=== PATIENT | female | born 1980 | race Hispanic/Latino ===

== ENCOUNTER 2018-01-23 21:29 | Emergency (ER) | payer MEDICAID, OTHER ==
[2018-01-23] MEDS ORDERED: Ketorolac Tromethamine 60 MG/2 ML VIAL ONE (22:29)
--- NOTE | 2018-01-23 23:00 | RAD ---
LEFT SHOULDER THREE VIEWS: 01/23/18 HISTORY: Fall, left shoulder pain. FINDINGS/IMPRESSION: No acute fracture or dislocation is identified. POS: SHARON
== END 2018-01-23 23:58 | disposition home or self-care (01) ==
LOC: ERS 21:29
DX: S43.432A Superior glenoid labrum lesion of left shoulder, initial encounter (principal); F17.210 Nicotine dependence, cigarettes, uncomplicated; Z71.6 Tobacco abuse counseling; Z79.899 Other long term (current) drug therapy; W18.30XA Fall on same level, unspecified, initial encounter
CPT/HCPCS: 96372; 99406; J1885

== ENCOUNTER 2019-02-17 21:29 | Day surgery (SDC) | payer OTHER ==
[2019-02-17 22:02] VITALS: BMI 40.1
[2019-02-17] MEDS ORDERED: Promethazine HCl 25 MG/ML VIAL IM SCH (23:15)
[2019-02-17] MEDS ORDERED: Morphine 4 MG/ML VIAL IM SCH (23:15)
--- NOTE | 2019-02-18 00:33 | PRG ---
DATE OF SERVICE: 02/17/2019 PRIMARY OB: Out of town. CHIEF COMPLAINT: Abdominal pain. HISTORY OF PRESENT ILLNESS: The patient is a 38-year-old, G7, P1 female with an intrauterine at 36 weeks and 4 days, who is presenting to Labor and Delivery today with complaints of two weeks of sharp abdominal and back pain and having lost her mucus plug yesterday. The patient reports that these pains have been stabby sharp pain, worse with activity and movement. She denies any contraction pains that come and go. She does report that her mucus plug seemed to have come out yesterday and has had some spotting more than usual since she was seen on Thursday by her primary OB. At that time, the patient had a cervical exam and was noted to be 1.5 cm dilated. The patient reports a history of a 36-week delivery. She is in town for a couple days, although her is working and is planning on returning in the next day or so back to the [facility]. The patient denies any recent illness, fever, fall, headache, chest pain, shortness of breath, nausea, vomiting, diarrhea, or constipation. She denies any hip problems, knee problems, or muscle weakness. She denies any significant change in her discharge other than what is stated in the HPI. She denies any urinary urgency or frequency. PAST MEDICAL HISTORY: Significant for asthma and anemia. PAST SURGICAL HISTORY: She has had a laparoscopy for a ruptured cyst. ALLERGIES: NO KNOWN DRUG ALLERGIES. MEDICATIONS: She is on vitamins, albuterol p.r.n., inhaled steroid, and iron. SOCIAL HISTORY: Denies drug, alcohol, or tobacco use. OB LABS: Unavailable at time of dictation. REVIEW OF SYSTEMS: Per HPI. PHYSICAL EXAMINATION: VITAL SIGNS: Blood pressure is 120/70, heart rate of 92, and temperature 97.6. GENERAL: She appears to be in no acute distress. She is alert, oriented, cooperative, and pleasant to interact with. HEENT: Head is normocephalic and atraumatic. LUNGS: Clear to auscultation bilaterally. HEART: Has regular rate and rhythm. ABDOMEN: Gravid. She does have significant tenderness with deviation of the uterus to the left and right, reproducing her chief complaint pains. She also has significant SI joint tenderness to palpation. EXTREMITIES: Nontender and nonedematous. : Per nursing staff is unchanged from her OB visit two days ago with cervical exam of 1.5 cm thick and high. heart tracing performed for abdominal pain and , baseline is noted to be in the 140s with moderate long-term variability, positive 15 x 15 accelerations, no decelerations. The patient on tocometer showing some irritability, but no consistent contraction pattern. ASSESSMENT AND PLAN: The patient is a 38-year-old female with an intrauterine at 36 weeks experiencing musculoskeletal pains of . Fetus is reactive and reassuring on heart tracing. The patient has been offered morphine and Phenergan for temporary pain control, which she is accepting. She has been notified that she cannot drive herself home and reports her is coming to get her. The patient will be leaving the area in the next year to return to her primary residence and to her OB provider. There is no evidence of labor today at this time. The patient has been given labor precautions. Job ID: [id number]
== END 2019-02-18 00:10 | disposition home or self-care (01) ==
LOC: L&D/OP 21:29
PROVIDERS: ATTEND Obstetrics & Gynecology
DX: O99.89 Other specified diseases and conditions complicating pregnancy, childbirth and the puerperium (principal); R10.9 Unspecified abdominal pain; M54.9 Dorsalgia, unspecified; O99.019 Anemia complicating pregnancy, unspecified trimester; D64.9 Anemia, unspecified; J45.909 Unspecified asthma, uncomplicated; Z3A.36 36 weeks gestation of pregnancy; Z79.51 Long term (current) use of inhaled steroids
CPT/HCPCS: 99282; J2270; J2550

== ENCOUNTER 2019-07-24 14:48 | Inpatient (IN) | payer OTHER, SELFPAY ==
[~2019-07-24 14:48] MED LIST: ISOVUE-370 76%-LOCM 1 ML ONE
[2019-07-24 15:19] LABS: #Basophils 0.1 thou/uL (0.0-0.2); #Eosinphils 0.5 thou/uL (0.0-0.7); #Lymphocytes 2.2 thou/uL (1.20-3.40); #Monocytes 0.5 thou/uL (0.11-0.59); #Neutrophils 3.4 thou/uL (1.40-6.50); %Basophils 1.5 % (0.0-1.0); %Lymphocytes 33.4 % (21.0-51.0); %Monocytes 6.7 % (0.0-10.0); %Neutrophils 50.5 % (42.0-75.0); Hemoglobin 13.1 g/dL (12.0-16.0); Mean Corpuscular HGB CONC 35.2 g/dL (32.0-36.0); Mean Corpuscular Hemoglobin 31.8 pg (27.0-31.0); Mean Corpuscular Volume 90.4 fL (78.0-98.0); Platelet Count 259 thou/uL (130-400); RBC Distribution Width 11.5 % (11.5-14.5); Red Blood Cell (RBC) Count 4.13 mill/uL (4.20-5.40); White Blood Cell (WBC) Count 6.7 thou/uL (4.8-10.8)
[2019-07-24 15:39] LABS: ALT (SGPT) 107 U/L (8-55); AST (SGOT) 77 U/L (5-34); Albumin 4.6 g/dL (3.5-5.0); Alkaline Phosphatase 123 U/L (40-110); Anion Gap 13 mmol/L (10-20); BUN (Urea Nitrogen) 10 mg/dL (7.0-18.7); Bilirubin, Total 0.5 mg/dL (0.2-1.2); Calc. Creatinine Clearance 0 mL/min (70-130); Calcium 9.6 mg/dL (7.8-10.44); Carbon Dioxide 28 mmol/L (22-29); Chloride 103 mmol/L (98-107); Estimated GFR-MDRD Greater than 90; Globulin 3.3 g/dL (2.4-3.5); Glucose 108 mg/dL (70-105); Protein, Total 7.9 g/dL (6.0-8.3); Sodium 140 mmol/L (136-145)
[2019-07-24] MEDS ORDERED: Ondansetron PF 4 MG/2 ML Vial ONE (16:10)
[2019-07-24] MEDS ORDERED: Morphine 4 MG/ML VIAL ONE (16:10)
[2019-07-24 16:22] LABS: Pregnancy Test - Urine (BHCG) Negative (Negative); Pregu Control Background? CLEAR/WHITE (CLR/WHITE); Pregu Control Bar Appear? YES (CONTROL BAR); Specific Gravity 1.016 (1.002-1.036)
--- NOTE | 2019-07-24 17:21 | CT ---
EXAM: CT ABDOMEN AND PELVIS HISTORY: Upper abdominal pain since delivery of child 4 months ago COMPARISON: None. Procedure: Multiple contiguous axial images were obtained and a CT of the abdomen and pelvis with IV contrast. C oronal reformats were performed. FINDINGS: Lower Chest: within normal limits. Vessels: Normal caliber aorta Heart: Normal heart size Abdomen: Portal vein:Patent Gallbladder: No calcified gallstones. Normal caliber wall. Liver: Hypoattenuation due to hepatic steatosis. No hepatic masses. Pancreas: within normal limits. Spleen: within normal limits. Adrenals: within normal limits. Kidneys: Symmetric enhancement. No obstructive uropathy. Peritoneum: No ascites or free air, no fluid collection. Bowel: Limited evaluation due to the lack of oral contrast administration. No evidence of bowel obstr uction. Ileocecal junction is unremarkable. Normal caliber appendix. Scattered fecal material in a nondistended, nondilated colon. Diverticulum in the third portion the duodenum measuring 3.2 x 3.0 cm . No acute inflammation. Mesentery and Retroperitoneum: No enlarged mesenteric or retroperitoneal lymph nodes. Abdominal Wall: Small anterior abdominal wall hernia containing mesenteric fat. There is fluid surrou nding the small herniated abdominal mesentery. Component of mesenteric fat measuring 1.9 x 1.0 cm. There is a small enhancing vessel that does extend through the defect. Consider general surgical cons ultation. Pelvis: Reproductive Organs: Reproductive organs are unremarkable. Pelvis: No mass, lymphadenopathy, free air or free fluid. Bladder: within normal limits. Bones: within normal limits. IMPRESSION: 1. No evidence of acute intraabdominal\pelvic abnormality. 2. Small ventral abdominal wall hernia containing a small focus of mesenteric fat. There is a mild am ount of fluid adjacent to the herniated fat, along with enhancing vessel in the herniated mesenteric fat. General surgical consultation is recommended.
[2019-07-24] MEDS ORDERED: hydrALAZINE 20 MG/ML VIAL SLOW IVP PRN (18:19)
[2019-07-24] MEDS ORDERED: Morphine 2 MG/ML SYRINGE SLOW IVP PRN (18:19)
[2019-07-24] MEDS ORDERED: Morphine 4 MG/ML VIAL SLOW IVP PRN (18:19)
[2019-07-24] MEDS ORDERED: Acetaminophen 1,000 MG in Premix Bag 1 BAG IVPB PRN (18:21)
[2019-07-24] MEDS ORDERED: Ketorolac Tromethamine 30 MG/ML VIAL IVP PRN (18:21)
[2019-07-24] MEDS ORDERED: Acetaminophen 1,000 MG in Premix Bag 1 BAG IVPB SCH ×2 (18:30→20:15)
[2019-07-24] MEDS ORDERED: CEFAZOLIN 2 GM in Premix Bag 1 BAG IVPB SCH (18:30)
[2019-07-24] MEDS ORDERED: D5 1/2 NS w/20 mEq KCL 1,000 ML IV SCH (18:30)
[2019-07-24] MEDS ORDERED: Ketorolac Tromethamine 30 MG/ML VIAL IVP SCH ×2 (18:30→20:30)
[2019-07-24 19:18] LABS: Lactic Acid 1.1 mmol/L (0.5-2.2)
[2019-07-24] MEDS ORDERED: Enoxaparin Sodium 40 MG/0.4 ML SYRINGE SC SCH ×2 (21:00)
[2019-07-24] MEDS ORDERED: Famotidine/PF 20 mg/2ml Vial SLOW IVP SCH ×2 (21:00)
[2019-07-24] MEDS: D5 1/2 NS w/20 mEq KCL 1,000 ML IV SCH (21:48)
[2019-07-24 22:30] VITALS: BMI 38.7
--- NOTE | 2019-07-25 01:31 | HP ---
HISTORY OF PRESENT ILLNESS: Helena Todd is a 38-year-old female, 2, para 2, 4 months , has developed a ventral hernia between her umbilicus and xiphoid. This caused her great amount of pain, and she presents to the emergency room, where her CAT scan confirms omental involvement incarcerated in the hernia. She is obese. Plan is to admit her tonight and repair her hernia tomorrow. She understands the risks and benefits, and consents. She consents to use of mesh if indicated. ALLERGIES: NONE. SOCIAL HISTORY: Tobacco, none. Alcohol, none. MEDICATIONS: Iron and vitamins. PAST SURGICAL HISTORY: Left ovarian cyst decompression; carpal tunnel release, right; tonsillectomy; and bilateral tubal ligation. PAST MEDICAL HISTORY: Noncontributory. PHYSICAL EXAMINATION: VITAL SIGNS: Blood pressure 120/70, respiratory rate 18, and heart rate 80. HEAD, EARS, EYES, NOSE, AND THROAT: Unremarkable. LUNGS: Clear to auscultation. CARDIAC: Regular rate and rhythm without murmur or gallop. ABDOMEN: Soft, nontender, obese except for tenderness in her midline, where she has incarcerated hernia between umbilicus and xiphoid. ASSESSMENT: Ventral hernia incarceration. PLAN: Repair tomorrow. We will admit her tonight for pain control and plan to repair this tomorrow. She understands risks and benefits and consents. Job ID: [id number]
[2019-07-25] MEDS: D5 1/2 NS w/20 mEq KCL 1,000 ML IV SCH ×3 (05:43→18:33)
[2019-07-25] MEDS ORDERED: Ketorolac Tromethamine 30 MG/ML VIAL IVP PRN (05:46)
[2019-07-25] MEDS ORDERED: Morphine 2 MG/ML SYRINGE SLOW IVP PRN (05:46)
[2019-07-25] MEDS ORDERED: Acetaminophen 1,000 MG in Premix Bag 1 BAG IVPB PRN (05:46)
[2019-07-25] MEDS ORDERED: hydrALAZINE 20 MG/ML VIAL SLOW IVP PRN (05:46)
[2019-07-25] MEDS ORDERED: Morphine 4 MG/ML VIAL SLOW IVP PRN (05:47)
[2019-07-25] MEDS ORDERED: CEFAZOLIN 2 GM in Premix Bag 1 BAG IVPB SCH (06:00)
[2019-07-25] MEDS ORDERED: FLU VACC QS2019-20(6MOS UP)/PF 60 MCG/0.5 ML SYRINGE IM ONE (09:00)
[2019-07-25] MEDS ORDERED: Famotidine/PF 20 mg/2ml Vial SLOW IVP SCH (09:00)
[2019-07-25] MEDS ORDERED: Lidocaine 2% PF 5 ML VIAL ONE (12:23)
[2019-07-25] MEDS ORDERED: Bupivacaine HCl 0.5%/Epinephrine 1:200,000/PF 30 ml Vial ONE (12:23)
[2019-07-25] MEDS ORDERED: Fentanyl 100 MCG/2 ML VIAL ONE ×3 (12:33→13:43)
[2019-07-25] MEDS ORDERED: Famotidine/PF 20 mg/2ml Vial ONE (12:33)
[2019-07-25] MEDS ORDERED: Meperidine HCl/PF 25 MG/ML VIAL SLOW IVP PRN (13:00)
[2019-07-25] MEDS ORDERED: HYDROmorphone 2 MG/ML VIAL SLOW IVP PRN (13:00)
[2019-07-25] MEDS ORDERED: Promethazine HCl 25 MG/ML VIAL SLOW IVP PRN (13:00)
[2019-07-25] MEDS ORDERED: Promethazine HCl 25 MG/ML VIAL IM PRN (13:00)
[2019-07-25] MEDS ORDERED: Ibuprofen 600 MG TAB PO PRN (13:30)
[2019-07-25] MEDS ORDERED: Acetaminophen 500 MG TAB PO PRN (13:30)
[2019-07-25] MEDS ORDERED: traMADol HCl 50 MG TAB PO PRN ×2 (13:30)
[2019-07-25] MEDS ORDERED: Promethazine HCl 25 MG/ML VIAL ONE (13:45)
--- NOTE | 2019-07-25 15:13 | OP ---
DATE OF PROCEDURE: 07/25/2019 PREOPERATIVE DIAGNOSES: Incarcerated ventral hernia (between the umbilicus and xiphoid, mid) And obesity. POSTOPERATIVE DIAGNOSES: Incarcerated ventral hernia (between the umbilicus and xiphoid, mid) And obesity. PROCEDURE PERFORMED: Repair of incarcerated ventral hernia without mesh (incarcerated omentum). ANESTHESIA: General, local 0.5% Marcaine with epinephrine 30 mL mixed with 2% Xylocaine, 10 mL, total volume mixture used. DESCRIPTION OF PROCEDURE: The patient was taken to the operating room, where under general anesthesia, abdomen was prepared with ChloraPrep and draped in routine fashion. Local anesthetic was infiltrated in the skin and subcutaneous tissue about the operative site. Midline incision was made over the incarcerated hernia mass approximately midway between the umbilicus and xiphoid. Incision was carried down through the skin and subcutaneous tissue and the hernia mass dissected free down to a very small hernia defect. The hernia sac was opened and amputated with the cautery. Omentum divided with cautery and fascial defect was closed in [id number] type technique with interrupted sutures #1 PDS. Good hemostasis noted. Subcutaneous tissue was approximated with 3-0 Monocryl, skin with subdermal 4-0 Monocryl and [place] glue applied. The patient tolerated the procedure well. Job ID: [id number]
[2019-07-25 15:54] VITALS: BP 146/81; TEMP 97.5
[2019-07-25] MEDS ORDERED: Enoxaparin Sodium 40 MG/0.4 ML SYRINGE SC SCH (21:00)
--- NOTE | 2019-07-26 04:04 | DIS ---
DATE OF ADMISSION: 07/24/2019 DATE OF DISCHARGE: 07/25/2019 DISCHARGE DIAGNOSIS: Incarcerated ventral hernia located midway between the umbilicus and xiphoid, incarcerated with omentum. PROCEDURES IN THIS HOSPITALIZATION: CT scan of abdomen scan of the abdomen and pelvis performed in the emergency room noting incarcerated omentum. HISTORY: A 38-year-old female, 4 months' , 2, para 2, presents with acute abdominal pain with CAT scan noting incarcerated hernia as described. The patient hospitalized overnight, underwent repair without mesh. The next day, she is discharged home with followup in my office in 2 to 3 weeks. DIET AND ACTIVITY: As tolerated, although avoiding lifting more than 25 pounds for 4 weeks. She can shower and bathe whenever she is sent home with iPointer #[id number], 2 refills. Job ID: [id number]
== END 2019-07-25 18:50 | disposition home or self-care (01) | DRG 355 ==
LOC: ERS 14:48 → SURG A 18:15 → ERS 19:34
PROVIDERS: ADMIT Specialist; ATTEND Specialist
PROC: 0WQF0ZZ Repair Abdominal Wall, Open Approach (ICD-10-PCS; principal; 2019-07-25)
DX: K43.6 Other and unspecified ventral hernia with obstruction, without gangrene (principal); I10 Essential (primary) hypertension; E66.9 Obesity, unspecified; Z98.51 Tubal ligation status; Z68.38 Body mass index [BMI] 38.0-38.9, adult
CPT/HCPCS: 36415; 74177; 80053; 81025; 83605; 85025; 90471; 90686; 96361; 96374; 96375; G0008; J0131; J0670; J0690; J1650; J1885; J2001; J2270; J2405; J2550; J3010; Q9966; S0028